=== PATIENT | female | born 1995 | race Hispanic/Latino ===

== ENCOUNTER 2016-11-13 19:29 | Emergency (ER) | payer OTHER ==
[~2016-11-13] VITALS: Ht 154.9 cm; Wt 70.2 kg
[2016-11-13 20:18] VITALS: BP 116/68
[2016-11-13] MEDS ORDERED: ULTRAM50 M1 PO (20:37)
[2016-11-13] MEDS ORDERED: AMOXICILLIN500 MG PO (20:37)
== END 2016-11-13 21:10 | disposition home or self-care (01) | DRG 159 ==
LOC: ED 19:29
DX: K04.7 Periapical abscess without sinus (principal)